=== PATIENT | female | born 1970 | race Caucasian/White ===

== ENCOUNTER 2019-08-15 06:34 | Emergency (ER) | payer BC ==
[2019-08-15 06:46] VITALS: BP 138/68; PULSE 87; RESP 17; TEMP 97.9
[2019-08-15] MEDS ORDERED: KETOROLAC 60 MG/2 ML VIAL IM STA (07:00)
[2019-08-15] MEDS ORDERED: ORPHENADRINE 30 MG/ML 2 ML VIAL IM STA (07:00)
--- NOTE | 2019-08-15 07:07 | ED ---
Back Pain HPI - General Chief Complaint: Back Pain/Injury Stated Complaint: Back pain Time Seen by Provider: 08/15/19 06:47 Source: patient, family, RN notes reviewed, old records reviewed Limitations: no limitations - History of Present Illness Initial Comments: Patient is a 48-year-old female, she presents emergency room today with lower back pain, and right-sided lumbar paraspinal muscle spasm. Patient reports that she woke up with worsening symptoms. Patient states that she has a strenuous job, she is supposed to have her. 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 She states that she is now having spasms. She is not taken any medications as of this time. She normally does see a chiropractor. Patient states she's had x-rays done by her chiropractor within the past year. Patient states that she's had no saddle anesthesias. She denies any peripheral paresthesias. - Related Data Previous Rx's Medication Instructions Recorded Cyclobenzaprine [Flexeril] 10 mg PO TID #12 tab 08/15/19 Ibuprofen [Motrin] 600 mg PO Q6HR PRN #12 tab 08/15/19 Allergies Allergy/AdvReac Type Severity Reaction Status Date / Time No Known Allergies Allergy Verified 08/15/19 06:46 Review of Systems ROS Statement: Those systems with pertinent positive or pertinent negative responses have been documented in the HPI. ROS Other: All systems not noted in ROS Statement are negative. Past Medical History Past Medical History: No Reported History History of Any Multi-Drug Resistant Organisms: None Reported Past Surgical History: No Surgical Hx Reported Past Psychological History: No Psychological Hx Reported Smoking Status: Never smoker Past Alcohol Use History: Occasional Past Drug Use History: None Reported General Exam Limitations: no limitations General appearance: alert, in no apparent distress Head exam: Present: atraumatic, normocephalic, normal inspection Eye exam: Present: normal appearance, PERRL, EOMI. Absent: scleral icterus, conjunctival injection, periorbital swelling ENT exam: Present: normal exam, mucous membranes moist Neck exam: Present: normal inspection. Absent: tenderness, meningismus, lymphadenopathy Respiratory exam: Present: normal lung sounds bilaterally. Absent: respiratory distress, wheezes, rales, rhonchi, stridor Cardiovascular Exam: Present: regular rate, normal rhythm, normal heart sounds. Absent: systolic murmur, diastolic murmur, rubs, gallop, clicks GI/Abdominal exam: Present: soft, normal bowel sounds. Absent: distended, tenderness, guarding, rebound, rigid Extremities exam: Present: normal inspection, full ROM, normal capillary refill. Absent: tenderness, pedal edema, joint swelling, calf tenderness Back exam: Present: normal inspection, tenderness (Patient has right-sided lumbar paraspinal muscle tenderness.), paraspinal tenderness (right lumbar) Neurological exam: Present: alert, oriented X3, CN II-XII intact Psychiatric exam: Present: normal affect, normal mood Skin exam: Present: warm, dry, intact, normal color. Absent: rash Course Vital Signs 08/15/19 06:43 Temperature 97.9 F Pulse Rate 87 Respiratory 17 Rate Blood Pressure 138/68 O2 Sat by Pulse 99 Oximetry Medical Decision Making - Medical Decision Making Patient's 48-year-old female presents emergency room today with lower back pain and spasm. No fall or trauma, denies Saddle anesthesia. Patient denies any abdominal pain, or dysuria. Patient does have some evidence of spasm over the lumbar paraspinal muscles towards the right side. Patient was given IM Toradol and Norflex. I discussed that without a full, no further imaging is necessary. The same Patient was given IM medications that have improvement. I discussed that I can discharge Patient went to [facility] muscle relaxer. I discussed the Patient needs to follow-up with primary care doctor or possibly her chiropractor. I discussed that Patient instructed to practice stretching. All questions were answered and return parameters were discussed. Disposition Clinical Impression: Lumbar paraspinal muscle spasm Disposition: HOME SELF-CARE Condition: Good Instructions (If sedation given, give patient instructions): Acute Low Back Pain (ED) Additional Instructions: Please use medication as discussed. Please follow up with family doctor if symptoms have not improved over the next two days. Please return to the emergency room if your symptoms increase or worsen or for any other concerns. Prescriptions: Cyclobenzaprine [Flexeril] 10 mg PO TID #12 tab Ibuprofen [Motrin] 600 mg PO Q6HR PRN #12 tab PRN Reason: Pain Is patient prescribed a controlled substance at d/c from ED?: No Referrals: Chelle Desir MD [Primary Care Provider] - 1-2 days Time of Disposition: 07:05
== END 2019-08-15 07:41 | disposition home or self-care (01) ==
LOC: EC 06:34
DX: M62.830 Muscle spasm of back (principal); M54.5 Low back pain
CPT/HCPCS: 99283; 96372 ×2; J2360; J1885